=== PATIENT | female | born 1965 | race Caucasian/White ===

== ENCOUNTER 2016-10-18 10:48 | Emergency (ER) | payer MEDICAID, SELFPAY ==
[~2016-10-18 10:48] MED LIST: ASPIR-LOW81 MG PO; BYDUREON2 MG SQ; CRESTOR20 MG PO; DUONEB DPS3 ML IH; GLIPIZIDE XL5 MG PO; GUAIFENESIN AC473 ML PO; HYDROCODONE 10M10 MG PO; HYZAAR-100/251 TAB PO; IBUPROFEN600 MG PO; LEVOCETIRIZINE D5 MG PO; MONTELUKAST SOD10 MG PO; NASONEX NASAL S17 GM NS; PRILOSEC DPS20 MG PO; PROVENTIL HFA6.7 GM IH; SPIRIVA18 MCG IH; ZANTAC DPS150 MG PO
--- NOTE | 2016-10-18 15:37 | NUR ---
Gave pt a project care voucher to [address] [facility] to cover the cost of the co-payments for her medications.
--- NOTE | 2016-10-19 10:00 | ER ---
ADMIT: 10/18/2016 RM/LOC: ER [facility] MR#: [id number] [id number] MASHA MADERA [address] [place] [address] Emergency Room Report SEX: F AGE: 51 : 1965 DATE: 10/18/2016 HISTORY OF PRESENT ILLNESS: The patient presents to emergency room with a cough for 5 days now, sinus congestion, and sore throat. She does have a history of COPD, hyperlipidemia, and multiple other myriads of issues like hypertension. She has had a hysterectomy, colonoscopy, and bowel resection. She has seasonal allergies. She is diabetic type 2, and has diverticulitis. MEDICATIONS: Include: 1. Crestor. 2. Zantac. 3. Metformin. 4. Glyburide. 5. . 6. Morphine. SOCIAL HISTORY: She quit smoking 2 years ago, states she dos not drink any alcohol. PHYSICAL EXAMINATION: GENERAL: A well-nourished, well-developed female, pharyngeal erythema, mildly anxious. RESPIRATIONS: No distress. Breath sounds are mildly wheezy throughout. SKIN: Good color. EXTREMITIES: Nontender. NEUROLOGIC: Oriented x4. CLINICAL IMPRESSION: 1. Asthma. 2. Chronic obstructive pulmonary disease exacerbation. Given albuterol nebulizer treatment and a Decadron. The patient advised to follow up with primary provider. Prescription assistance from [employer]. Continue home medications, activity, and increase fluids. ALEXIS Sanchez / Hakeem Ocasio MD / modl JOB #: [id number] CC: Hakeem Ocasio MD, Attending Physician UNKNOWN, Family Physician
== END 2016-10-18 15:10 | disposition home or self-care (01) ==
LOC: ER 10:48
DX: J44.1 Chronic obstructive pulmonary disease with (acute) exacerbation (principal); E11.9 Type 2 diabetes mellitus without complications; I10 Essential (primary) hypertension; E78.5 Hyperlipidemia, unspecified; Z87.891 Personal history of nicotine dependence; Z88.5 Allergy status to narcotic agent; Z88.8 Allergy status to other drugs, medicaments and biological substances; Z79.899 Other long term (current) drug therapy